=== PATIENT | male | born 1965 | race Two or more races ===

== ENCOUNTER 2021-01-14 18:20 | Emergency (ER) | payer SELFPAY ==
[~2021-01-14] VITALS: Ht 170.2 cm; Wt 71.7 kg
[2021-01-14] MEDS ORDERED: SODIUM CHLORIDE 0.9% 1000ML 1,000 ML IV STA (19:00)
[2021-01-14] MEDS ORDERED: IBUPROFEN 600 MG TAB PO STA (19:00)
[2021-01-14] MEDS ORDERED: LISINOPRIL5 MG PO (19:05)
[2021-01-14] MEDS ORDERED: AMLODIPINE BESY10 MG PO (19:05)
[2021-01-14] MEDS ORDERED: SODIUM CHLORIDE 0.9% 1000ML 1,000 ML ONE (19:20)
[2021-01-14] MEDS ORDERED: SODIUM BICARBONATE 4.2% 10 ML SYRINGE ONE (19:20)
[2021-01-14] MEDS ORDERED: SODIUM CHLORIDE 0.9% 100 ML ONE (20:52)
[2021-01-14] MEDS ORDERED: CEFTRIAXONE 1 GM VIAL ONE (20:52)
[2021-01-14] MEDS ORDERED: CEFTRIAXONE 1 GM in SODIUM CHLORIDE 0.9% 50ML 50 ML IV SCH (21:00)
[2021-01-14] MEDS ORDERED: CEFDINIR300 MG PO (21:24)
[2021-01-14] MEDS ORDERED: ONDANSETRON ODT4 MG PO (21:24)
== END 2021-01-14 21:37 | disposition home or self-care (01) ==
LOC: FSED 19:05
DX: R50.9 Fever, unspecified (principal); J02.0 Streptococcal pharyngitis; R73.9 Hyperglycemia, unspecified; N28.9 Disorder of kidney and ureter, unspecified; D69.6 Thrombocytopenia, unspecified; I10 Essential (primary) hypertension; F17.210 Nicotine dependence, cigarettes, uncomplicated
CPT/HCPCS: 71045; 80048; 80076; 81003; 83518; 85025; 87400; 99283; J0696; J7030; J7050